=== PATIENT | male | born 1995 | race Caucasian/White ===

== ENCOUNTER 2021-05-18 23:50 | Emergency (ER) | payer MEDICAID, OTHER ==
[~2021-05-18] VITALS: Ht 167.6 cm; Wt 54.4 kg
--- NOTE | 2021-05-18 23:55 | NUR ---
PT AMBULATED TO ER WITH C/O RIGHT EYE DISCOMFORT. STATES HE WAS WORKING AT A [employer] AND GOT CORN MEAL BLOWN IN HIS EYE BY THE FAN. A/O X4, NO SOB OR LABORED BREATHING, AFEBRILE.
--- NOTE | 2021-05-18 23:56 | NUR ---
DR. MALIN AT BEDSIDE, MSE IN PROGRESS.
[2021-05-19] MEDS ORDERED: TETRACAINE HCL 0.5% OPHT DROP 2 ML BOTTLE ONE (00:10)
[2021-05-19] MEDS ORDERED: FLUORESCEIN SODIUM 1 MG STRIP ONE (00:10)
[2021-05-19] MEDS ORDERED: SODIUM/POT/SOD CHL OPHT WASH 120 ML BOTTLE ONE (00:14)
[2021-05-19] MEDS ORDERED: TETRACAINE HCL 0.5% OPHT DROP 2 ML BOTTLE OP ONE (00:15)
[2021-05-19] MEDS ORDERED: SODIUM/POT/SOD CHL OPHT WASH 120 ML BOTTLE OP ONE (00:15)
[2021-05-19] MEDS ORDERED: FLUORESCEIN SODIUM 1 MG STRIP OP ONE (00:15)
--- NOTE | 2021-05-19 00:25 | NUR ---
Patient discharged to home in stable condition. A/O x4, denies any pain/discomfort. Written and verbal after care instructions given. Patient verbalizes understanding of instructions. Stressed follow up or return to ER for worsening s/s. Steady gait.
[2021-05-19 00:26] VITALS: BP 126/88
== END 2021-05-19 00:27 | disposition home or self-care (01) ==
LOC: ER 23:53
DX: T15.91XA Foreign body on external eye, part unspecified, right eye, initial encounter (principal); X58.XXXA Exposure to other specified factors, initial encounter; Y93.G3 Activity, cooking and baking; Y92.511 Restaurant or cafe as the place of occurrence of the external cause; Y99.0 Civilian activity done for income or pay; R03.0 Elevated blood-pressure reading, without diagnosis of hypertension
CPT/HCPCS: A4663; J7030

== ENCOUNTER 2021-11-05 01:58 | Emergency (ER) | payer MEDICAID ==
[~2021-11-05] VITALS: Ht 167.6 cm; Wt 56.7 kg
--- NOTE | 2021-11-05 02:00 | NUR ---
patient placed in bed 2B, bed at lowest position, bed rail up
--- NOTE | 2021-11-05 02:45 | NUR ---
Dr Mendez in room with patient, assessing patient
[2021-11-05] MEDS ORDERED: OXYCODONE/APAP 5-325 MG TABLET PO ONE (03:00)
[2021-11-05] MEDS ORDERED: ONDANSETRON ODT 4 MG TAB.RAPDIS SL ONE (03:00)
[2021-11-05] MEDS ORDERED: ONDA4TAB5 PO (03:08)
[2021-11-05] MEDS ORDERED: OXYC-128 PO (03:08)
[2021-11-05] MEDS ORDERED: OXYCODONE/APAP 5-325 MG TABLET ONE (03:13)
[2021-11-05] MEDS ORDERED: ONDANSETRON ODT 4 MG TAB.RAPDIS ONE (03:16)
[2021-11-05] MEDS ORDERED: ONDANSETRON HCL 4 MG TABLET ONE (03:16)
--- NOTE | 2021-11-05 03:21 | NUR ---
Patient discharged to home in stable condition. Written and verbal after care instructions given. Patient verbalizes understanding of instructions. Stressed follow up or return to ER for worsening s/s.
[2021-11-05 03:45] VITALS: BP 149/96
== END 2021-11-05 03:20 | disposition home or self-care (01) ==
LOC: ER 01:58
DX: S06.0X1A Concussion with loss of consciousness of 30 minutes or less, initial encounter (principal); R40.2362 Coma scale, best motor response, obeys commands, at arrival to emergency department; S80.01XA Contusion of right knee, initial encounter; K08.89 Other specified disorders of teeth and supporting structures; R40.2142 Coma scale, eyes open, spontaneous, at arrival to emergency department; R40.2252 Coma scale, best verbal response, oriented, at arrival to emergency department; S80.02XA Contusion of left knee, initial encounter; S80.12XA Contusion of left lower leg, initial encounter; S80.11XA Contusion of right lower leg, initial encounter; S00.531A Contusion of lip, initial encounter; V43.52XA Car driver injured in collision with other type car in traffic accident, initial encounter; Y92.410 Unspecified street and highway as the place of occurrence of the external cause; F17.200 Nicotine dependence, unspecified, uncomplicated; Z59.00 Homelessness unspecified
CPT/HCPCS: A4663; Q0162